=== PATIENT | female | born 1975 | race African-American/Black ===

== ENCOUNTER → 2018-08-11 | Outpatient (CLI) | payer OTHER ==
--- NOTE | 2018-08-11 13:40 | RADIOLOGY IMAGING REPORT ---
FACILITY: [facility] PATIENT NAME: Landy Benedict : 1975 MR: [id number] V: [id number] EXAM DATE: ORDERING PHYSICIAN: FRANCISCO GONZALES TECHNOLOGIST: Location: [facility] [place] Patient: Landy Benedict : 1975 Visit/Account:[id number] Date of Sevice: 08/11/2018 Exam type: WRIST LEFT MIN 3 VIEW History: Pain and swelling left wrist, no known injury Comparison: None. Findings: There is no evidence of acute fracture dislocation or significant arthritic change involving the left wrist. No lytic or blastic bone lesions are seen. There suggestion of mild soft tissue swelling IMPRESSION: 1. Mild soft tissue spine about the left wrist although no underlying osseous abnormality identified Report Dictated By: Sari Negrete MD at 08/11/2018 1:34 PM Report E-Signed By: Sari Negrete MD at 08/11/2018 1:36 PM WSN:[email or web address]
--- NOTE | 2018-08-11 13:43 | RADIOLOGY IMAGING REPORT ---
FACILITY: [facility] [place] PATIENT NAME: Landy Benedict : 1975 MR: [id number] V: [id number] EXAM DATE: ORDERING PHYSICIAN: FRANCISCO GONZALES TECHNOLOGIST: Location: [facility] [place] Patient: Landy Benedict : 1975 Visit/Account:[id number] Date of Sevice: 08/11/2018 Exam type: FINGER RIGHT THUMB History: Pain and swelling of right thumb with no known injury Comparison: None. Findings: There is a tiny bony/calcific density projecting just dorsal to the IP joint of the right thumb and a n additional tiny bony/calcific density projecting just proximal to the base of the right first metac arpal. These could represent peritendinous calcifications or possibly the sequelae of old trauma. D ue to the smooth margins these do not appear to represent acute fractures. There suggestion of mild soft tissue swelling at the right first MCP joint. IMPRESSION: 1. Tiny bony/calcific densities project just dorsal to the IP joint of the right thumb and just prox imal to the right first carpal which could represent peritendinous calcifications or possibly the seq uelae of old trauma. Report Dictated By: Sari Negrete MD at 08/11/2018 1:36 PM Report E-Signed By: Sari Negrete MD at 08/11/2018 1:38 PM WSN:[email or web address]
== END ==
LOC: RAD 12:39
PROVIDERS: ATTEND Chiropractor
DX: M25.532 Pain in left wrist (principal)